=== PATIENT | female | born 1950 ===

== ENCOUNTER 2021-09-13 16:39 | Emergency (ER) | payer MEDICARE ==
--- NOTE | 2021-09-13 17:19 | Emergency Department Report ---
<KATHI GUIDO - Last Filed: 09/13/21 17:14> ED Psych HPI - General Chief Complaint: Medical Clearance Stated Complaint: PSYCH EVAL Time Seen by Provider: 09/13/21 17:02 Source: patient, EMS Mode of arrival: Wheelchair - History of Present Illness Initial Comments: Patient is 71 years old female with history of congestive heart failure, hypertension Osteoarthritis and depression. Patient brought from [facility] for inpatient psychiatric admission. EMS initially to the patient to the psych floor thinking this is going to be a direct admit however they send the patient down to the ER for medical clearance first. When I examined the patient patient is calm. I asked her why did they send you to the hospital she stated that because I am crazy. [facility] staff reporting patient aggressive behavior and destroying equipment in the retirement. Patient denied any suicidal or homicidal ideation. She also denied any auditory or visual hallucination. Patient denied any chest pain or shortness of breath. She is alert, oriented x3 in no acute distress. MD Complaint: altered mental status -: days(s) Associated Psychiatric Symptoms: racing thoughts, delusions Quality: constant Associated Symptoms: denies other symptoms - Related Data Home Medications Medication Instructions Recorded Confirmed Last Taken Apixaban [Eliquis] 5 mg PO BID 09/14/21 09/14/21 Unknown Divalproex [Lazaro Delgado] 1 tab PO BID 09/14/21 09/14/21 Unknown Fluticasone [Flonase] 50 mcg IH QDAC 09/14/21 09/14/21 Unknown Furosemide [Lasix] 40 mg PO QID 09/14/21 09/14/21 Unknown Gabapentin [Neurontin] 100 mg PO Q8HR 09/14/21 09/14/21 Unknown Insulin Aspart Protam & Aspart 0 unit SQ BID 09/14/21 09/14/21 Unknown [NovoLOG Mix 70-30 Flexpen] Ipratropium/Albuterol Sulfate 3 ml IH Q6HR 09/14/21 09/14/21 Unknown [DUONEB *Not for PRN Use*] Metoprolol ER-Hctz 25-12.5 mg 25 mg PO TID 09/14/21 09/14/21 Unknown OLANZapine [Olanzapine] 7.5 mg PO QHS 09/14/21 09/14/21 Unknown Omeprazole 20 mg PO QID 09/14/21 09/14/21 Unknown Potassium Chloride [K-Dur] 10 meq PO QDAY 09/14/21 09/14/21 Unknown Pravastatin Sodium [Pravastatin] 10 mg PO QHS 09/14/21 09/14/21 Unknown risperiDONE [RisperDAL] 0.25 mg PO BID 09/14/21 09/14/21 Unknown Allergies Allergy/AdvReac Type Severity Reaction Status Date / Time morphine AdvReac Unknown Verified 09/13/21 16:47 ED Review of Systems Comment: Unobtainable due to pts medical conditions Constitutional: denies: chills, fever Respiratory: denies: cough, shortness of breath, SOB with exertion, SOB at rest Cardiovascular: denies: chest pain, palpitations Gastrointestinal: denies: abdominal pain, nausea, vomiting, diarrhea, cons tipation, hematemesis, melena, hematochezia Musculoskeletal: denies: back pain Neurological: denies: headache, weakness, numbness, paresthesias, confusion, abnormal gait ED Past Medical Hx - Medications Home Medications: Home Medications Medication Instructions Recorded Confirmed Last Taken Type Apixaban [Eliquis] 5 mg PO BID 09/14/21 09/14/21 Unknown History Divalproex [Lazaro Delgado] 1 tab PO BID 09/14/21 09/14/21 Unknown History Fluticasone [Flonase] 50 mcg IH QDAC 09/14/21 09/14/21 Unknown History Furosemide [Lasix] 40 mg PO QID 09/14/21 09/14/21 Unknown History Gabapentin [Neurontin] 100 mg PO Q8HR 09/14/21 09/14/21 Unknown History Insulin Aspart Protam & Aspart 0 unit SQ BID 09/14/21 09/14/21 Unknown History [NovoLOG Mix 70-30 Flexpen] Ipratropium/Albuterol Sulfate 3 ml IH Q6HR 09/14/21 09/14/21 Unknown History [DUONEB *Not for PRN Use*] Metoprolol ER-Hctz 25-12.5 mg 25 mg PO TID 09/14/21 09/14/21 Unknown History OLANZapine [Olanzapine] 7.5 mg PO QHS 09/14/21 09/14/21 Unknown History Omeprazole 20 mg PO QID 09/14/21 09/14/21 Unknown History Potassium Chloride [K-Dur] 10 meq PO QDAY 09/14/21 09/14/21 Unknown History Pravastatin Sodium [Pravastatin] 10 mg PO QHS 09/14/21 09/14/21 Unknown History risperiDONE [RisperDAL] 0.25 mg PO BID 09/14/21 09/14/21 Unknown History ED Physical Exam - General Limitations: No Limitations General appearance: alert, in no apparent distress - Head Head exam: Present: atraumatic, normocephalic, normal inspection - Eye Eye exam: Present: normal appearance - ENT ENT exam: Present: normal exam, normal orophraynx, mucous membranes moist - Neck Neck exam: Present: normal inspection, full ROM. Absent: tenderness, meningismus - Respiratory Respiratory exam: Present: normal lung sounds bilaterally - Cardiovascular Cardiovascular Exam: Present: regular rate, normal rhythm, normal heart sounds - GI/Abdominal GI/Abdominal exam: Present: soft, normal bowel sounds. Absent: distended, tenderness, guarding, rebound, rigid, organomegaly, mass, bruit, pulsatile mass, hernia - Extremities Exam Extremities exam: Present: normal inspection, full ROM, normal capillary refill. Absent: pedal edema, calf tenderness - Back Exam Back exam: Present: normal inspection, full ROM. Absent: CVA tenderness (R), CVA tenderness (L) - Neurological Exam Neurological exam: Present: alert, oriented X3, CN II-XII intact, normal gait, reflexes normal. Absent: motor sensory deficit - Psychiatric Psychiatric exam: Present: normal mood - Skin Skin exam: Present: warm, intact, normal color ED Disposition Clinical Impression: Acute psychosis, Bipolar disorder, Diabetes [facility] Condition: Stable Instructions: Diabetes Mellitus Type 2 in Adults (ED) <HUYEN SANCHEZ - Last Filed: 09/14/21 11:34> ED Review of Systems ROS: Stated complaint: PSYCH EVAL Other details as noted in HPI ED Course Vital Signs 09/13/21 09/13/21 09/14/21 18:18 18:19 00:05 Temperature 98.0 F 98.4 F Pulse Rate 88 95 H Respiratory 16 18 Rate Blood Pressure 107/83 111/59 [Right] O2 Sat by Pulse 95 95 96 Oximetry 09/14/21 09/14/21 09/14/21 01:40 05:31 06:35 Temperature Pulse Rate 108 H 95 H 143 H Respiratory 16 15 20 Rate Blood Pressure 106/49 110/53 144/78 [Right] O2 Sat by Pulse 92 100 96 Oximetry 09/14/21 08:16 Temperature Pulse Rate 98 H Respiratory 18 Rate Blood Pressure 107/51 [Right] O2 Sat by Pulse 100 Oximetry ED Medical Decision Making - Lab Data Result diagrams: 09/13/21 17:20 09/13/21 23:07 - Medical Decision Making This patient was seen yesterday afternoon by my colleague for a mental health evaluation. It appears that the patient has a history of bipolar disorder and was sent in by the nursing facility secondary to some aggression and violence displayed at the retirement including trying to destroy some of the property there. Patient denied any suicidal or homicidal ideations. She was seen by the psychiatric team today who feel that the patient requires a 1013 and inpatient stabilization. Labs were mostly unremarkable except for some hypokalemia with potassium level of 3.2 but upon repeat has gone up to 3.4. The patient also has hyperglycemia originally with a serum blood sugar of about 300. No evidence of diabetic ketoacidosis. Her most recent blood sugar was about 240. The patient has been placed on Accu-Cheks with meals and at night and placed on a consistent carbohydrate diet. Have also placed the patient on an insulin sliding scale. Vital signs have been reassuring throughout her ED course thus far. The patient is medically cleared for psychiatric placement. We will continue to monitor her during her ED course. Critical Care Time: No Critical care attestation.: If time is entered above; I have spent that time in minutes in the direct care of this critically ill patient, excluding procedure time. ED Disposition Is pt being admited?: No
[2021-09-13 17:41] LABS: Basophils # (Auto) 0.1 K/mm3 (0.0-0.1); Basophils % (Auto) 0.6 % (0.0-1.8); Eosinophils # (Auto) 0.1 K/mm3 (0.0-0.4); Eosinophils % (Auto) 0.6 % (0.0-4.3); Lymphocytes # (Auto) 2.2 K/mm3 (1.2-5.4); Lymphocytes % (Auto) 24.9 % (13.4-35.0); Mean Corpuscular HGB Conc 31 % (30-34); Mean Corpuscular Volume 88 fl (79-97); Monocytes # (Auto) 1.3 K/mm3 (0.0-0.8); Monocytes % (Auto) 14.6 % (0.0-7.3); Platelet Count 322 K/mm3 (140-440); Red Blood Count 5.24 M/mm3 (3.65-5.03); Red Cell Distribution Width 16.1 % (13.2-15.2)
[2021-09-13 17:45] LABS: Hematocrit 46.2 % (30.3-42.9); Hemoglobin 14.2 gm/dl (10.1-14.3)
--- NOTE | 2021-09-13 17:54 | XRay Report ---
CHEST 1 VIEW INDICATION: Medical Clearance Psych. COMPARISON: None FINDINGS: SUPPORT DEVICES: Cardiac leads project over the right atrium and the right ventricle. HEART: Mild cardiomegaly. LUNGS/PLEURA: No acute air space or interstitial disease. ADDITIONAL FINDINGS: None. IMPRESSION: 1. No acute findings. Signer Name: Frantz Gonzalez MD Signed: 09/13/2021 5:50 PM Workstation Name: [id number]
[2021-09-13 18:06] LABS: Bilirubin,Urine NEG (Negative); Blood,Urine NEG (Negative); Color,Urine Yellow (Yellow); Mucus,Urine FEW /HPF; Urobilinogen,Urine < 2.0 mg/dL (<2.0)
[2021-09-13 18:11] LABS: RBC,Urine < 1.0 /HPF (0.0-6.0)
[2021-09-13 18:12] LABS: Amphetamine Screen,Urine Negative; Benzodiazepines Screen,Urine Negative; Cannabinoid Screen,Urine Negative; Cocaine Screen,Urine Negative; Methadone Screen,Urine Negative; Opiate Screen,Urine Negative
[2021-09-13] MEDS ORDERED: LORazepam 1 MG TAB PO ONE (18:23)
[2021-09-13] MEDS ORDERED: POTASSIUM CHLORIDE ER 20 MEQ TAB PO ONE ×2 (19:04→23:50)
[2021-09-13] MEDS ORDERED: INSULIN REGULAR, HUMAN 100 UNITS/1 ML SUB-Q ONE (19:04)
--- NOTE | 2021-09-13 19:07 | Cat Scan Report ---
CT head/brain wo con INDICATION / CLINICAL INFORMATION: 71 years Female; Medical Clearance Psych. TECHNIQUE: Routine CT head without contrast. All CT scans at this location are performed using CT dos e reduction for ALARA by means of automated exposure control. COMPARISON: None. FINDINGS: BRAIN / INTRACRANIAL CONTENTS: There is moderate cerebral white matter disease most consistent with m icrovascular angiopathy. There is also mild cerebral atrophy. The ventricular system is corresponding ly appropriate in size and configuration. There is no clear CT evidence of acute intracranial hemorrh age or significant mass effect. ORBITS: No significant abnormality of visualized orbits. SINUSES / MASTOIDS: No significant abnormality in the visualized paranasal sinuses or mastoid air olivia ls. CRANIOCERVICAL JUNCTION: No significant abnormality. ADDITIONAL FINDINGS: None. IMPRESSION: 1. There is moderate microvascular angiopathy and mild cerebral atrophy without CT evidence of acute intracranial process. Signer Name: Nasim Browning MD Signed: 09/13/2021 7:03 PM Workstation Name: [id number]
[2021-09-13 23:35] LABS: BUN/Creatinine Ratio 13; Blood Urea Nitrogen 12 mg/dL (7-17); Calcium 8.8 mg/dL (8.4-10.2); Hemolysis Index 44
[2021-09-14] MEDS ORDERED: ZIPRASIDONE MESYLATE 20 MG VIAL IM ONE ×4 (00:17→21:47)
[2021-09-14] MEDS ORDERED: HALOPERIDOL LACTATE 5 MG/1 ML INJ IM ONE ×3 (01:37→22:57)
[2021-09-14] MEDS ORDERED: SODIUM CHLORIDE 0.9% 250ML 250 ML IV ONE (03:29)
[2021-09-14] MEDS: HALOPERIDOL 2 MG TAB PO SCH ×2 (10:04→14:04)
--- NOTE | 2021-09-14 11:05 | Consultation ---
History of Present Illness - Reason for Consult Consult date: 09/14/21 Reason for consult: mental health evaluation - History of Present Psychiatric Illness ED Note: Patient is 71 years old female with history of congestive heart failure, hypertension Osteoarthritis and depression. Patient brought from [facility] at [facility] for inpatient psychiatric admission. EMS initially to the patient to the psych floor thinking this is going to be a direct admit however they send the patient down to the ER for medical clearance first. When I examined the patient patient is calm. I asked her why did they send you to the hospital she stated that because I am crazy. correction staff reporting patient aggressive behavior and destroying equipment in the longterm. Patient denied any suicidal or homicidal ideation. She also denied any auditory or visual hallucination. Patient denied any chest pain or shortness of breath. She is alert, oriented x3 in no acute distress. The patient is seen on soft wrist restraints, she is agitated stating " please let me up I will behave. " PAST PSYCHIATRIC HISTORY- Unable to assess SOCIAL HISTORY- Unable to assess REVIEW OF SYSTEMS-Unable to assess MENTAL STATUS EXAMINATION-Unable to assess Assessment and Plan (1) Bipolar (2) Treatment plan 1013 Restart home medications. Risks, benefits and alternatives of medications discussed with the patient, questions answered and consent obtained from patient. PSYCHOTHERAPY: Supportive psychotherapy provided MEDICAL: Per primary team DELIRIUM PRECAUTIONS: Please re-orient patient frequently, keep lights on during the day, and minimize benzodiazepines and opiates as these medications could worsen patient's confusion. SHIP MANAGER: Per medical team DISPOSITION: Recommend acute inpatient psychiatric hospitalization. Will follow. Thank you for the consult. Please contact with any questions and/or concerns. Case staffed with Dr. Almanzar Medications and Allergies Medications and Allergies Allergies Allergy/AdvReac Type Severity Reaction Status Date / Time morphine AdvReac Unknown Verified 09/13/21 16:47 Home Medications Medication Instructions Recorded Confirmed Last Taken Type Apixaban [Eliquis] 5 mg PO BID 09/14/21 09/14/21 Unknown History Divalproex [Lazaro Delgado] 1 tab PO BID 09/14/21 09/14/21 Unknown History Fluticasone [Flonase] 50 mcg IH QDAC 09/14/21 09/14/21 Unknown History Furosemide [Lasix] 40 mg PO QID 09/14/21 09/14/21 Unknown History Gabapentin [Neurontin] 100 mg PO Q8HR 09/14/21 09/14/21 Unknown History Insulin Aspart Protam & Aspart 0 unit SQ BID 09/14/21 09/14/21 Unknown History [NovoLOG Mix 70-30 Flexpen] Ipratropium/Albuterol Sulfate 3 ml IH Q6HR 09/14/21 09/14/21 Unknown History [DUONEB *Not for PRN Use*] Metoprolol ER-Hctz 25-12.5 mg 25 mg PO TID 09/14/21 09/14/21 Unknown History OLANZapine [Olanzapine] 7.5 mg PO QHS 09/14/21 09/14/21 Unknown History Omeprazole 20 mg PO QID 09/14/21 09/14/21 Unknown History Potassium Chloride [K-Dur] 10 meq PO QDAY 09/14/21 09/14/21 Unknown History Pravastatin Sodium [Pravastatin] 10 mg PO QHS 09/14/21 09/14/21 Unknown History risperiDONE [RisperDAL] 0.25 mg PO BID 09/14/21 09/14/21 Unknown History Active Meds: Active Medications Haloperidol (Haloperidol 2 Mg Tab) 2 mg PO TID [facility] Last Admin: 09/14/21 10:04 Dose: 2 mg Documented by: Mental Status Exam - Vital signs Last Vital Signs Temp 98.4 F 09/14/21 00:05 Pulse 98 H 09/14/21 08:16 Resp 18 09/14/21 08:16 BP 107/51 09/14/21 08:16 Pulse Ox 100 09/14/21 08:16 Results Result Diagrams: 09/13/21 17:20 09/13/21 23:07 Abnormal lab results 09/13/21 09/13/21 09/13/21 Range/Units 17:20 17:20 17:20 RBC 5.24 H (3.65-5.03) M/mm3 Hct 46.2 H (30.3-42.9) % MCH 27 L (28-32) pg RDW 16.1 H (13.2-15.2) % Buchanan % (Auto) 14.6 H (0.0-7.3) % [place]anan # (Auto) 1.3 H (0.0-0.8) K/mm3 Potassium 3.2 L (3.6-5.0) mmol/L Chloride 90.2 L (98-107) mmol/L Carbon Dioxide 32 H (22-30) mmol/L Glucose 305 H (65-100) mg/dL POC Glucose (70-105) mg/dL Salicylates < 0.3 L (2.8-20.0) mg/dL Acetaminophen (10.0-30.0) ug/mL 09/13/21 09/13/21 09/14/21 Range/Units 17:20 23:07 08:25 RBC (3.65-5.03) M/mm3 Hct (30.3-42.9) % MCH (28-32) pg RDW (13.2-15.2) % Buchanan % (Auto) (0.0-7.3) % [place]anan # (Auto) (0.0-0.8) K/mm3 Potassium 3.4 L (3.6-5.0) mmol/L Chloride 96.8 L (98-107) mmol/L Carbon Dioxide (22-30) mmol/L Glucose 243 H (65-100) mg/dL POC Glucose 247 H (70-105) mg/dL Salicylates (2.8-20.0) mg/dL Acetaminophen 5.0 L (10.0-30.0) ug/mL All other labs normal.
[2021-09-14] MEDS ORDERED: DEXTROSE 50% IN WATER (25GM) 50 ML SYRINGE IV PRN (11:29)
[2021-09-14] MEDS: INSULIN REGULAR, HUMAN 100 UNITS/1 ML SUB-Q SCH ×2 (12:20→17:47)
[2021-09-14] MEDS ORDERED: FLUTICASONE PROPIONATE NASAL SPRAY 16 GM NS ONE (13:21)
[2021-09-14] MEDS ORDERED: METOPROLOL HCTZ PO SCH (14:00)
[2021-09-14] MEDS ORDERED: NON-FORMULARY EACH (Omeprazole [Omeprazole] 20 MG Capsule.Dr) PO SCH (14:00)
[2021-09-14] MEDS: GABAPENTIN 100 MG CAP PO SCH (14:04)
[2021-09-14] MEDS: hydroCHLOROthiazide 12.5 MG CAP PO SCH (14:04)
[2021-09-14] MEDS: METOPROLOL SUCCINATE XL 25 MG TAB PO SCH (14:05)
[2021-09-14] MEDS: FUROSEMIDE 40 MG TAB PO SCH ×2 (14:05→18:04)
[2021-09-14 19:44] LABS: Hemoglobin 12.8 gm/dl (10.1-14.3); Mean Corpuscular HGB Conc 31 % (30-34); Mean Corpuscular Volume 89 fl (79-97); Platelet Count 276 K/mm3 (140-440); Red Blood Count 4.74 M/mm3 (3.65-5.03); Red Cell Distribution Width 15.9 % (13.2-15.2)
[2021-09-14 21:08] LABS: Anisocytosis 1+; Total Cells Counted 100
[2021-09-14 21:09] LABS: Platelet Estimate Consistent w Auto
[2021-09-14] MEDS ORDERED: diphenhydrAMINE 50 MG/ML VIAL ONE (21:43)
[2021-09-14] MEDS ORDERED: diphenhydrAMINE 50 MG/ML VIAL IM ONE (21:47)
[2021-09-14] MEDS ORDERED: NON-FORMULARY EACH (Pravastatin Sodium [Pravastatin] 10 MG Tablet) PO SCH (22:00)
[2021-09-14] MEDS ORDERED: APIXABAN 5 MG TAB PO SCH (22:00)
[2021-09-14] MEDS ORDERED: NON-FORMULARY EACH (Apixaban 5 MG Tablet) PO SCH (22:00)
[2021-09-14] MEDS ORDERED: risperiDONE 0.25 MG TAB PO SCH (22:00)
[2021-09-14] MEDS ORDERED: PRAVASTATIN 20 MG TAB PO SCH (22:00)
[2021-09-15] MEDS: METOPROLOL SUCCINATE XL 25 MG TAB PO SCH ×2 (05:07→09:20)
[2021-09-15] MEDS: hydroCHLOROthiazide 12.5 MG CAP PO SCH ×2 (05:07→09:16)
[2021-09-15] MEDS: HALOPERIDOL 2 MG TAB PO SCH ×2 (05:07→09:15)
[2021-09-15] MEDS: FUROSEMIDE 40 MG TAB PO SCH (05:08)
[2021-09-15] MEDS: GABAPENTIN 100 MG CAP PO SCH ×2 (05:08→06:32)
[2021-09-15] MEDS: DIVALPROEX DR 500 MG TAB PO SCH ×2 (05:08→10:00)
[2021-09-15] MEDS: INSULIN REGULAR, HUMAN 100 UNITS/1 ML SUB-Q SCH ×2 (05:08→08:49)
[2021-09-15 09:22] VITALS: BP 168/107
[2021-09-15] MEDS ORDERED: PANTOPRAZOLE 20 MG TAB PO SCH (10:00)
[2021-09-15] MEDS ORDERED: POTASSIUM CHLORIDE ER 10 MEQ TAB PO SCH (13:00)
== END 2021-09-15 10:43 ==
LOC: ED 16:39
DX: Z13.30 Encounter for screening examination for mental health and behavioral disorders, unspecified (principal); Z79.899 Other long term (current) drug therapy; Z20.822 Contact with and (suspected) exposure to COVID-19
CPT/HCPCS: 36415; 70450; 71045; 80048; 80307; 81001; 82962; 85007; 85025; 99285; J1200; J1630; J3486; J7050; U0003; 80320; Q9967; G0480; J1815